=== PATIENT | female | born 1945 | race Caucasian/White ===

== ENCOUNTER 2017-10-14 16:09 | Emergency (ER) | payer OTHER ==
[~2017-10-14] VITALS: Ht 157.5 cm; Wt 68.0 kg
[~2017-10-14 16:09] MED LIST: ABAT250V; ACET325 PO; AMIT50; AMIT50 PO; ARIP10 PO; ASCO500 PO; ASPI81CH PO; ASPI81EC PO; B 12 INJECTIONS; BACL10 PO; Bactrim Ds Tab1 EACH PO; CALC.25 PO; CALCAVITD PO; CALCAVITDA; CALCIT950 PO; CHOL10002 PO; CLOB.05TC TOP; CLOB.05TO TP; CLON1 PO; CLOP75 PO; CYAN1000I IM; CYAN500; CYCL10 PO; DOC250 PO; DOCU100 PO; DULO30; DULO30 PO; DULO60 PO; EPOE20I SC; ERGO400; FERR325 PO; FISH1000 PO; FOLI1 PO; FURO20 PO; GABA100 PO; GABA300; GABA300 PO; GABA400; GLIM2 PO; GLUCHON PO; HYDACE5 PO; HYDRA25 PO; HYDSUL200 PO; ISOMON20 PO; Isosorbide Mono60 MG PO; LEVSOD25 PO; LEVSOD50 PO; LIDO5TP TOP; LIOT5 PO; LISI10; LISI20; LOVA20 PO; MECL25 PO; MULVITMINE PO; NEBI10 PO; NEBI5 PO; NITRSPRAY SL; Norco 5-325 Ta1 EACH PO; OMEG1CAP30 PO; OMEP20ER PO; OMEP40CA12 PO; OXYC5 PO; PANT40 PO; POTCHL10ER PO; PRAV10 PO; PREG150 PO; PREG50 PO; PROACE100; PROLIA60 MG/1 ML SC; PROM12.5S PR; PROM25 PO; PROP80ER PO; RANO500T PO; SALS750; TAMS.4ER PO; TRAM50 PO; TRAZ100 PO; TRAZ50 PO; TRIM100 PO; VITAMIN D35000 UNIT PO; [UNRECOGNIZED DRUG - OTHER] PO; [UNRECOGNIZED DRUG - REMARK]
[2017-10-14 16:39] LABS: BASOPHILS ABSOLUTE AUTO 0.01 K/mm3 (0.00-0.23); BASOPHILS PERCENT AUTO 0 % (0-2); EOSINOPHILS PERCENT AUTO 0 % (0-6); Hematocrit 36.7 % (33.0-51.0); Hemoglobin 10.6 g/dL (11.5-16.0); IMMATURE GRAN ABSOLUTE AUTO 0.03 K/mm3 (0.00-0.10); IMMATURE GRAN PERCENT AUTO 1 % (0-1); LYMPHOCYTES ABSOLUTE AUTO 0.94 K/mm3 (0.84-5.20); LYMPHOCYTES PERCENT AUTO 22 % (21-46); MONOCYTES PERCENT AUTO 12 % (4-13); Mean Corpuscular HGB 31.5 pg (26.0-34.0); Mean Corpuscular HGB Conc 28.9 g/dL (31.5-36.5); Mean Corpuscular Volume 109 fL (80-100); Mean Platelet Volume 13.1 fL (9.1-12.4); NEUTROPHILS ABSOLUTE AUTO 2.76 K/mm3 (1.96-9.15); NEUTROPHILS PERCENT AUTO 65 % (41-73); NRBC ABSOLUTE 0.05 K/mm3 (0.00-0.02); NRBC Auto 1.1 /100 WBC (0.0-0.2); Platelet Count 119 K/mm3 (150-400); RDW Coefficient Variation 15.3 % (11.7-14.2); RDW Standard Deviation 60.3 fL (35.1-46.3); Red Blood Cell Count 3.36 M/mm3 (3.80-5.20); White Blood Cell Count 4.24 K/mm3 (4.00-11.30)
[2017-10-14 16:51] LABS: Albumin, Blood 1.8 g/dL (3.4-5.0); Albumin/Globulin Ratio 0.6 (0.8-1.8); Bilirubin, Total 0.8 mg/dL (0.1-1.0); Bun/Creatinine Ratio 12.7 (12.0-20.0); Calcium, Blood 8.3 mg/dL (8.5-10.1); Creatinine, Blood 2.37 mg/dL (0.40-1.00); Globulin, Blood 2.8 g/dL (2.2-4.0); Total Protein, Blood 4.6 g/dL (6.4-8.2)
[2017-10-14 17:41] LABS: Source, Urine Clean Catch
[2017-10-14 17:44] LABS: Bilirubin, Urine Neg (Neg); Blood, Urine Neg (Neg); Glucose Qualitative, Urine Neg (Neg); Ketones, Urine Neg (Neg); Leukocyte Esterase, Urine 1+ (Neg); Nitrite, Urine Neg (Neg); Protein, Urine Neg (Neg); Urobilinogen, Urine NORM (Normal)
[2017-10-14 17:50] LABS: Appearance, Urine Clear (Clear); Color, Urine Yellow (P-Yellow); Hyaline Casts 0-2 /lpf (0-2)
[2017-10-14 17:51] LABS: Red Blood Cells, Urine 0-2 /hpf (0-2); Renal Epithelial Few /hpf (0-Rare); Transitional Epithelial Cells Few /hpf (0-Rare)
[2017-10-14 17:53] LABS: Bacteria Few /hpf; Squamous Epithelial Cells Few /hpf (Few)
[2017-10-14] MEDS ORDERED: KLOR-CON SPRINK8 MEQ PO (18:08)
[2017-10-14] MEDS ORDERED: Cipro500 MG PO (18:08)
== END 2017-10-14 19:40 | disposition home or self-care (01) ==
LOC: ER 16:09
PROVIDERS: Emergency Medicine
DX: N39.0 Urinary tract infection, site not specified (principal); Z79.899 Other long term (current) drug therapy; Z88.1 Allergy status to other antibiotic agents; Z91.011 Allergy to milk products; Z88.8 Allergy status to other drugs, medicaments and biological substances; M32.9 Systemic lupus erythematosus, unspecified; I12.9 Hypertensive chronic kidney disease with stage 1 through stage 4 chronic kidney disease, or unspecified chronic kidney disease; E11.22 Type 2 diabetes mellitus with diabetic chronic kidney disease; N18.3 Chronic kidney disease, stage 3 (moderate); Z90.710 Acquired absence of both cervix and uterus
CPT/HCPCS: 80053; 81001; 85025; 93005; 93010; 99283